=== PATIENT | female | born 1990 | race Caucasian/White ===

== ENCOUNTER → 2016-11-03 | Outpatient (CLI) | payer OTHER ==
[2016-11-03 16:39] LABS: CHLAM PCR NOT DETECTED (NOT DETECT)
== END ==
LOC: LAB 15:04
PROVIDERS: ATTEND Emergency Medicine
DX: N89.8 Other specified noninflammatory disorders of vagina (principal); R30.0 Dysuria
CPT/HCPCS: 87086; 87210; 87491; 87591

== ENCOUNTER 2019-01-31 18:03 | Emergency (ER) | payer OTHER ==
--- NOTE | 2019-01-31 18:30 | ER Document Report ---
ED Medical Screen (RME) - General Chief Complaint: Post Surgical Pain Stated Complaint: POST OP PAIN Time Seen by Provider: 01/31/19 18:27 Primary Care Provider: NASIMA HOUGH MD [Primary Care Provider] - Follow up as needed Mode of Arrival: Ambulatory Information source: Patient Notes: 28-year-old female presented to ED for complaint of swelling and pain to the right breast. She had a breast augmentation January 14, 2019. Patient is alert and oriented. She denies smoking cigarettes or drinking but she does smoke marijuana. I have greeted and performed a rapid initial assessment of this patient. A comprehensive ED assessment and evaluation of the patient, analysis of test results and completion of medical decision making process will be conducted by an additional ED providers. TRAVEL OUTSIDE OF THE [place] IN LAST 30 DAYS: No Physical Exam - Vital signs Vitals: Temp Pulse Resp BP Pulse Ox 98.3 F 80 20 131/67 H 100 01/31/19 18:10 01/31/19 18:10 01/31/19 18:10 01/31/19 18:10 01/31/19 18:10 Course - Vital Signs Vital signs: Temp Pulse Resp BP Pulse Ox 98.3 F 80 20 131/67 H 100 01/31/19 18:10 01/31/19 18:10 01/31/19 18:10 01/31/19 18:10 01/31/19 18:10 Doctor's Discharge - Discharge Referrals: NASIMA HOUGH MD [Primary Care Provider] - Follow up as needed
[2019-01-31] MEDS ORDERED: NORMAL SALINE 1000 ML 1,000 ML IV ONE (19:27)
[2019-01-31] MEDS ORDERED: MORPHINE SULFATE 10 MG/ML INJ IV ONE (19:27)
[2019-01-31 19:30] LABS: ABSOLUTE BASOPHILS # (AUTO) 0.1 10^3/uL (0.0-0.2); ABSOLUTE EOSINOPHILS # (AUTO) 0.3 10^3/uL (0.0-0.6); ABSOLUTE LYMPHOCYTES (AUTO) 2.3 10^3/uL (0.5-4.7); ABSOLUTE MONOCYTES (AUTO) 0.6 10^3/uL (0.1-1.4); ABSOLUTE NEUT (AUTO) 6.8 10^3/uL (1.7-8.2); BASOPHILS % (AUTO) 0.6 % (0-2); EOSINOPHILS % (AUTO) 2.6 % (0-6); HEMATOCRIT 34.9 % (36.0-47.0); MEAN CORPUSCULAR HEMOGLOBIN 29.3 pg (27.0-33.4); MEAN CORPUSCULAR HGB CONC 34.2 g/dL (32.0-36.0); MEAN CORPUSCULAR VOLUME 86 fl (80-97); MONOCYTES % (AUTO) 6.2 % (3-13); PLATELET COUNT 346 10^3/uL (150-450); RED BLOOD COUNT 4.08 10^6/uL (3.72-5.28); RED CELL DISTRIBUTION WIDTH 14.1 % (11.5-14.0); SEGMENTED NEUTROPHILS % (AUTO) 67.6 % (42-78); TOTAL CELLS COUNTED % (AUTO) 100 %; WHITE BLOOD COUNT 10.1 10^3/uL (4.0-10.5)
--- NOTE | 2019-01-31 19:37 | ER Document Report ---
ED General - General Chief Complaint: Post Surgical Pain Stated Complaint: POST OP PAIN Time Seen by Provider: 01/31/19 18:27 Mode of Arrival: Ambulatory Notes: Patient is a 28-year-old female presents emergency department with a chief complaint of right breast pain. On January 14 she had a breast augmentation. She states that since then she did not have any complications. She woke up this morning and felt that her right breast was a lot larger than normal and she feels her armpit is also swollen. Patient denies any body aches or chills. Denies any fever. Denies any past medical history. Patient states that Dr. Reilly in [place] did her surgery. TRAVEL OUTSIDE OF THE [place] IN LAST 30 DAYS: No - Related Data Allergies/Adverse Reactions: No Known Allergies Allergy (Verified 01/31/19 19:15) Home Medications: Gabapentin. Anti-depressants (pt unable to remember names) Past Medical History - General Information source: Patient - Social History Smoking Status: Never Smoker Frequency of alcohol use: None Drug Abuse: Marijuana Family History: Reviewed & Not Pertinent Patient has suicidal ideation: No Patient has homicidal ideation: No Review of Systems - Review of Systems Notes: REVIEW OF SYSTEMS: CONSTITUTIONAL : Denies recent illness. Denies recent unintentional weight loss. Denies fever, chills, or sweats. EENT: Denies eye, ear, throat, or mouth pain, discharge, or symptoms. Denies nasal or sinus congestion. CARDIOVASCULAR: Denies chest pain. RESPIRATORY: Denies shortness of breath, cough, congestion, difficulty breathing, or wheezing. GASTROINTESTINAL: Denies nausea, vomiting, and diarrhea. Denies abdominal pain. Denies constipation. GENITOURINARY: Denies difficulty urinating, burning, blood in urine, urgency or frequency. MUSCULOSKELETAL: Denies neck and back pain. Denies joint pain or swelling. SKIN: Denies rash, itchiness, or lesions HEMATOLOGIC : Denies easy bruising or bleeding. LYMPHATIC: Denies swollen, painful, enlarged glands. NEUROLOGICAL: Denies no numbness or tingling denies weakness. Denies headache. Denies altered mental status. Denies alteration in speech. PSYCHIATRIC: Denies stress, anxiety, alteration in sleep patterns, or depression. BREAST: See HPI. All other systems reviewed and negative. Physical Exam - Vital signs Vitals: Temp Pulse Resp BP Pulse Ox 98.3 F 80 20 131/67 H 100 01/31/19 18:10 01/31/19 18:10 01/31/19 18:10 01/31/19 18:10 01/31/19 18:10 - Notes Notes: PHYSICAL EXAMINATION: GENERAL: Appears well, healthy, well-nourished, no acute distress. HEAD: Normocephalic, atraumatic. EYES: PERRL, conjunctiva normal, all extraocular movements intact, sclera nonicteric ENT: Moist mucous membranes. NECK: Supple, no noticeable swelling, redness, rash. Normal range of motion. LUNGS: Equal breath sounds bilaterally and clear to auscultation. No wheezes rales or rhonchi. CARDIOVASCULAR: S1-S2, regular rate, regular rhythm. Radial pulses 2+, normal. ABDOMEN: Normoactive bowel sounds. Soft, nontender, no guarding, no rebound tenderness, and no masses palpated. EXTREMITIES: Normal strength and range of motion, no pitting or edema. No cyanosis. NEUROLOGICAL: Moves all extremities upon command. Strength 5/5 in all extremities. PSYCH: Normal mood, normal affect. SKIN: Warm, dry. No rash, lesions, ulcerations noted. Normal skin turgor. BREAST: Right breast tenderness and erythema noted. Course - Re-evaluation Re-evalutation: 01/31/19 20:[address] Gomez and he does not do this type of surgery. 01/31/19 21:03 I have contacted [facility] and they will get back to me if the surgeon there is able to take care of this medication. 01/31/19 21:11 I spoke with transfer center at [facility] and they said that the surgeon manufacturing production technician would like us to speak with Dr. Reilly. The transfer center is going to call Dr. Reilly' office and have him call the emergency department. 01/31/19 21:52 I was able to speak with Dr. Reilly, the plastic surgeon who did the surgery. He would like to see the patient in the office first thing in the morning at 8:00. I relayed this information on to the patient. She will go home with Mandi and Jose to help with her pain and nausea. She is in agreement with this plan. Follow-up precautions were given. Verbal discharge instructions were given to the patient. They verbalized understanding. They are stable for discharge. - Vital Signs Vital signs: Temp Pulse Resp BP Pulse Ox 98.3 F 80 12 124/74 99 01/31/19 18:10 01/31/19 18:10 01/31/19 23:00 01/31/19 22:01 01/31/19 23:00 - Laboratory Result Diagrams: 01/31/19 18:59 01/31/19 18:59 Laboratory results interpreted by me: 01/31/19 18:59 Hct 34.9 L RDW 14.1 H Discharge - Discharge Clinical Impression: Breast pain Condition: Stable Disposition: HOME, SELF-CARE Additional Instructions: You were seen today in the emergency department for right breast pain. Please go to Dr. Reilly' office first thing in the morning and be there at 8:00. He will see you at that time. You are being sent home with [place], medication for pain you can take 2 tablets every 4 hours as needed for pain. You are also being sent home with Jose, medication for nausea. You can take 1 to 2 tablets every 4 hours as needed. Forms: Return to Work
[2019-01-31] MEDS ORDERED: HYDROMORPHONE HCL INJ/PF 2 MG/ML AMPULE IV ONE ×3 (19:50→22:43)
[2019-01-31 19:51] LABS: ALBUMIN 4.4 g/dL (3.5-5.0); ALKALINE PHOSPHATASE 67 U/L (38-126); ANION GAP 8 (5-19); ASPARTATE AMINO TRANSFERASE 22 U/L (14-36); BILIRUBIN,DIRECT 0.1 mg/dL (0.0-0.4); BILIRUBIN,TOTAL 0.3 mg/dL (0.2-1.3); BLOOD UREA NITROGEN 19 mg/dL (7-20); CALCIUM 9.5 mg/dL (8.4-10.2); CARBON DIOXIDE 28 mmol/L (22-30); CHLORIDE 104 mmol/L (98-107); GLUCOSE 85 mg/dL (75-110); TOTAL PROTEIN 7.4 g/dL (6.3-8.2)
[2019-01-31 20:35] LABS: APPEARANCE,URINE SLIGHTLY-CLOUDY; BILIRUBIN,URINE NEGATIVE (NEGATIVE); COLOR,URINE STRAW; GLUCOSE, URINE NEGATIVE (NEGATIVE); KETONES,URINE NEGATIVE (NEGATIVE); PROTEIN,URINE NEGATIVE (NEGATIVE); UROBILINOGEN,URINE NEGATIVE mg/dL (<2.0)
--- NOTE | 2019-01-31 20:36 | RADIOLOGY REPORT (SQ) ---
EXAM DESCRIPTION: CT CHEST WITH IV CONTRAST COMPLETED DATE/TME: 01/31/2019 18:36 CLINICAL HISTORY: 28 years, Female, post operative swelling EXAM DESCRIPTION: CLINICAL HISTORY: post operative swelling COMPARISON: None Available. TECHNIQUE: Contiguous axial images of the chest were obtained from the thoracic inlet up to the upper abdomen followed by reconstruction images. IV contrast was used. This exam was performed according to our departmental dose-optimization program, which includes automated exposure control, adjustment of the mA and/or kV according to patient size and/or use of iterative reconstruction technique. FINDINGS: There bilateral breast implants. There is soft tissue swelling and fluid surrounding the right breast implant with heterogeneous attenuation suggesting a hemorrhagic component. Proteinaceous material of other etiology is also possible. There is enhancement at the margins of this fluid collection. Infection of the fluid is likely. At the inferior aspect of this fluid collection, there are poorly defined regions of fluid with surrounding enhancement suggesting phlegmon/early evolving abscess. Rupture of the breast implant is not entirely excluded but this could instead be postsurgical inflammation and infection of fluid and hemorrhage without implant rupture. Follow-up is recommended. There are mildly enlarged adjacent lymph nodes. No definite acute complication of the left breast implant is seen. There is mild atelectasis in the posterior right lung. No pneumothorax or pleural effusion on either side. No other acute abnormality. The aorta is of normal contour and tapering. There is no pericardial or pleural fluid collection. There is no parenchymal consolidation. IMPRESSION: Findings are most consistent with inflamed/infected fluid/hemorrhage surrounding the right breast implant, with surrounding cellulitis. At the inferior aspect of this fluid collection, there are poorly defined regions of fluid with surrounding enhancement suggesting phlegmon/early evolving abscess. No clear evidence of osteomyelitis. See additional comments above.
[2019-01-31 20:42] LABS: URINE SPECIFIC GRAVITY > 1.060
[2019-01-31] MEDS ORDERED: CLINDAMYCIN 600 MG/D5W RTU 600 MG/50 ML RTUPB IV ONE (20:56)
[2019-01-31] MEDS ORDERED: ONDANSETRON HCL INJ/PF 4 MG/2 ML SDV IV ONE (21:24)
[2019-01-31] MEDS ORDERED: ONDANSETRON ODT 4 MG TAB (6 TAB/ER DISP) PO PRN (22:10)
[2019-01-31] MEDS ORDERED: HYDROCODONE/ACETAMINOPHEN 5-325 MG (6 TAB/ER DISP) PO PRN (22:10)
[2019-01-31 22:37] VITALS: BP 124/74
== END 2019-01-31 23:08 | disposition home or self-care (01) ==
LOC: ER 18:03
DX: G89.18 Other acute postprocedural pain (principal); N64.4 Mastodynia
CPT/HCPCS: 36415; 87040; 83690; 84703; 85025; 80053; 81001; 71260; J2270; J1170; J2405; J7030

== ENCOUNTER 2019-03-07 10:45 | Emergency (ER) | payer OTHER ==
[2019-03-07] MEDS ORDERED: ONDANSETRON 4 MG TAB.RAPDIS PO ONE (11:27)
--- NOTE | 2019-03-07 11:29 | ER Document Report ---
ED Medical Screen (RME) - General Chief Complaint: Vomiting Stated Complaint: VOMITING Time Seen by Provider: 03/07/19 11:26 Mode of Arrival: Ambulatory Information source: Patient Notes: 28-year-old female presents to ED for nausea vomiting and diarrhea. She states she is vomited at least 10 times today and one diarrhea stool yesterday. She is had nausea and vomiting since Friday she states nobody else in her household is sick. Her last menstrual period was January. Is alert oriented respirations regular nonlabored speaking in full sentences walks with even steady gait. Abdomen soft tender generalized with active bowel sounds. I have greeted and performed a rapid initial assessment of this patient. A comprehensive ED assessment and evaluation of the patient, analysis of test results and completion of medical decision making process will be conducted by an additional ED providers. TRAVEL OUTSIDE OF THE [place] IN LAST 30 DAYS: No - Related Data Allergies/Adverse Reactions: No Known Allergies Allergy (Verified 03/07/19 11:19) Physical Exam - Vital signs Vitals: Temp Pulse Resp BP Pulse Ox 98.3 F 75 12 123/78 99 03/07/19 10:48 03/07/19 10:48 03/07/19 10:48 03/07/19 10:48 03/07/19 10:48 Course - Vital Signs Vital signs: Temp Pulse Resp BP Pulse Ox 98.3 F 75 12 123/78 99 03/07/19 10:48 03/07/19 10:48 03/07/19 10:48 03/07/19 10:48 03/07/19 10:48
[2019-03-07] MEDS ORDERED: NORMAL SALINE 1000 ML 1,000 ML IV ONE ×2 (11:30→13:30)
[2019-03-07 12:08] LABS: APPEARANCE,URINE CLOUDY; BILIRUBIN,URINE NEGATIVE (NEGATIVE); COLOR,URINE YELLOW; GLUCOSE, URINE NEGATIVE (NEGATIVE); KETONES,URINE 20 mg/dL (NEGATIVE); PROTEIN,URINE 30 mg/dL (NEGATIVE); URINE SPECIFIC GRAVITY 1.028; UROBILINOGEN,URINE NEGATIVE mg/dL (<2.0)
[2019-03-07 12:40] LABS: ABSOLUTE LYMPHOCYTES (AUTO) 1.3 10^3/uL (0.5-4.7); ABSOLUTE MONOCYTES (AUTO) 0.5 10^3/uL (0.1-1.4); ABSOLUTE NEUT (AUTO) 4.6 10^3/uL (1.7-8.2); BASOPHILS % (AUTO) 0.4 % (0-2); EOSINOPHILS % (AUTO) 0.7 % (0-6); HEMOGLOBIN 13.1 g/dL (12.0-15.5); LYMPHOCYTES % (AUTO) 19.8 % (13-45); MEAN CORPUSCULAR HEMOGLOBIN 28.1 pg (27.0-33.4); MEAN CORPUSCULAR HGB CONC 33.5 g/dL (32.0-36.0); MEAN CORPUSCULAR VOLUME 84 fl (80-97); MONOCYTES % (AUTO) 8.4 % (3-13); PLATELET COUNT 286 10^3/uL (150-450); RED BLOOD COUNT 4.65 10^6/uL (3.72-5.28); RED CELL DISTRIBUTION WIDTH 13.2 % (11.5-14.0); SEGMENTED NEUTROPHILS % (AUTO) 70.7 % (42-78); TOTAL CELLS COUNTED % (AUTO) 100 %; WHITE BLOOD COUNT 6.5 10^3/uL (4.0-10.5)
[2019-03-07 12:46] LABS: ALKALINE PHOSPHATASE 76 U/L (38-126); ANION GAP 15 (5-19); ASPARTATE AMINO TRANSFERASE 71 U/L (14-36); BILIRUBIN,DIRECT 0.2 mg/dL (0.0-0.4); BILIRUBIN,TOTAL 0.5 mg/dL (0.2-1.3); BLOOD UREA NITROGEN 21 mg/dL (7-20); CALCIUM 10.2 mg/dL (8.4-10.2); CARBON DIOXIDE 24 mmol/L (22-30); CHLORIDE 102 mmol/L (98-107); GLUCOSE 97 mg/dL (75-110); POTASSIUM 3.8 mmol/L (3.6-5.0); TOTAL PROTEIN 8.9 g/dL (6.3-8.2)
[2019-03-07] MEDS ORDERED: FAMOTIDINE INJ/PF 20 MG/2 ML SDV IV ONE (13:30)
--- NOTE | 2019-03-07 13:37 | ER Document Report ---
ED General - General Chief Complaint: Vomiting Stated Complaint: VOMITING Time Seen by Provider: 03/07/19 11:26 Mode of Arrival: Ambulatory TRAVEL OUTSIDE OF THE [place] IN LAST 30 DAYS: No - HPI Notes: Ms. Trinidad is a 28-year-old female with a chief complaint of nausea vomiting geeta rrhea and weakness. Onset 2 days ago Duration persistent Quality burning epigastric discomfort Location epigastric Radiation none Precipitating factors: No exposure to ill individuals. Relieving factors none Severity moderate Pertinent prior history: Good general health. No prior abdominal surgery. Last menses normal 3 weeks ago. - Related Data Allergies/Adverse Reactions: No Known Allergies Allergy (Verified 03/07/19 11:19) Past Medical History - General Information source: Patient, Relative - Social History Smoking Status: Current Some Day Smoker Drug Abuse: Marijuana Family History: Reviewed & Not Pertinent Patient has suicidal ideation: No Patient has homicidal ideation: No Past Surgical History: Reports: Hx Breast Surgery - BREAST AUGMENTATION, Hx Section - C SEC X2 Review of Systems - Review of Systems Notes: Constitutional: Negative for fever. HENT: Negative for sore throat. Eyes: Negative for visual changes. Cardiovascular: Negative for chest pain. Respiratory: Negative for shortness of breath. Gastrointestinal: As per HPI. Genitourinary: Negative for dysuria. Musculoskeletal: Negative for back pain. Skin: Negative for rash. Neurological: Mild dizziness. Negative for headaches, weakness or numbness. 10 point ROS negative except as marked above and in HPI. Physical Exam - Vital signs Vitals: Temp Pulse Resp BP Pulse Ox 98.3 F 75 12 123/78 99 03/07/19 10:48 03/07/19 10:48 03/07/19 10:48 03/07/19 10:48 03/07/19 10:48 - Notes Notes: GENERAL: Well-developed well-nourished appearing mildly uncomfortable. SKIN: Good turgor no rashes. HEAD: Normocephalic atraumatic. EYES: Sunken. PERRLA. Conjunctivae and sclerae clear. EARS: CANALS AND TMS CLEAR. NOSE: CLEAR. MOUTH: Tacky mucosa. Good dentition. No stridor or edema. No drooling. NECK: Supple. No masses or thyromegaly. No adenopathy. Carotids 2+ without bruits. No JVD. BACK: Symmetrical without tenderness. CHEST: Respirations unlabored. Breath sounds clear and symmetrical. HEART: Regular rhythm. No murmur gallop or rub. ABDOMEN: Soft nontender without masses, organomegaly or rebound. Bowel sounds hyperactive. No bruits. GENITALIA: Deferred. EXTREMITIES: No edema. No calf tenderness. Cap refill less than 1.5 seconds. Dorsalis pedis and posterior tibial pulses 3+ and symmetrical. NEUROLOGICAL: GCS 15. Alert and oriented x3. Normal gait. Fluent speech. Cranial nerves II through XII intact. Sensorimotor and cerebellar normal. Normal tone. Course - Re-evaluation Re-evalutation: 03/07/19 13:36 Patient appears mild to moderately dehydrated. IV normal saline. IV Pepcid. IV Zofran. Clinically this appears to be an acute gastroenteritis. Will reassess after rehydration. She DOES NOT appear to have a surgical abdomen. 03/07/19 15:04 Patient is had second liter of normal saline IV and has tolerated p.o. fluids. She feels much better and is ready for discharge. - Vital Signs Vital signs: Temp Pulse Resp BP Pulse Ox 98.3 F 75 12 123/78 99 03/07/19 11:19 03/07/19 10:48 03/07/19 11:19 03/07/19 10:48 03/07/19 11:19 - Laboratory Result Diagrams: 03/07/19 12:09 03/07/19 12:09 Laboratory results interpreted by me: 03/07/19 03/07/19 11:40 12:09 BUN 21 H AST 71 H Total Protein 8.9 H Urine Protein 30 H Urine Ketones 20 H Discharge - Discharge Clinical Impression: Acute gastroenteritis, Dehydration Condition: Stable Disposition: HOME, SELF-CARE Instructions: Antinausea Medication ([facility]), Gastroenteritis (adult) ([facility]) Additional Instructions: Increase oral fluids. Return here as needed for new or worsening symptoms. Follow-up with your primary care doctor this week. Unable to work next 3 days. Prescriptions: Ondansetron [Zofran Odt 4 mg Tablet] 1 - 2 tab PO Q4H PRN #15 tab.rapdis PRN Reason: For Nausea/Vomiting Referrals: [facility] [Provider Group] - Follow up as needed
[2019-03-07 15:28] VITALS: BP 100/61
== END 2019-03-07 15:28 | disposition home or self-care (01) ==
LOC: ER 10:45
DX: K52.9 Noninfective gastroenteritis and colitis, unspecified (principal); E86.0 Dehydration; R42 Dizziness and giddiness; F17.200 Nicotine dependence, unspecified, uncomplicated
CPT/HCPCS: 99284; 96360; 36415; 83690; 84703; 85025; 80053; 81001; S0119; J7030; S0028